=== PATIENT | female | born 1955 | race Caucasian/White ===

== ENCOUNTER 2023-07-17 15:03 | Inpatient (IN) | payer OTHER ==
[~2023-07-17] VITALS: Ht 167.6 cm; Wt 92.5 kg
[~2023-07-17 15:03] MED LIST: AMLO-258 PO
[2023-07-17] MEDS ORDERED: 0.9% SODIUM CHLORIDE 10 ML SYRINGE IVP PRN (17:00)
[2023-07-17 17:41] LABS: BASOPHILS % (AUTO) 0.6 % (0.0-2.0); EOSINOPHILS % (AUTO) 0 % (1.0-6.0); HEMATOCRIT 47.4 % (36-46); HEMOGLOBIN 16.1 g/dL (12.0-16.0); LYMPHOCYTES # (AUTO) 1.4 K/uL (1.0-4.8); LYMPHOCYTES % (AUTO) 9.9 % (22.0-44.0); MEAN CORPUSCULAR HEMOGLOBIN 33.2 pg (26.0-34.0); MEAN CORPUSCULAR HGB CONC 33.9 G/dL (31.0-37.0); MEAN CORPUSCULAR VOLUME 98 fL (80-100); MONOCYTES # (AUTO) 0.9 K/uL (0.1-1.0); MONOCYTES % (AUTO) 6.9 % (2.0-9.0); NEUTROPHILS # (AUTO) 11.2 K/uL (1.8-7.7); NEUTROPHILS % (AUTO) 82.6 % (40.0-70.0); PLATELET COUNT (AUTO) 430 K/uL (150-450); RED BLOOD CELL COUNT(AUTO) 4.83 MIL/uL (4.00-5.20); RED CELL DISTRIBUTION WIDTH 13.7 % (11.5-14.5); WHITE BLOOD COUNT (AUTO) 13.6 K/uL (4.5-11.0)
[2023-07-17 17:48] LABS: COVID AG,FIA SOURCE NASAL SWAB
[2023-07-17 17:50] LABS: ANION GAP 16 mmol/L (8-16); CALCIUM, TOTAL 9.4 mg/dL (8.8-10.5); CARBON DIOXIDE 23 mmol/L (22-29); CHLORIDE 96 mmol/L (98-107); CREATININE 0.65 mg/dL (0.60-1.30); GLOMERULAR FILTR. RATE CALC > 60 mL/min (>60); GLUCOSE,RANDOM 102 mg/dL (70-110); POTASSIUM 3.9 mmol/L (3.5-5.1); SODIUM SERUM 135 mmol/L (136-145); UREA NITROGEN, BLOOD 13 mg/dL (7-18)
[2023-07-17 17:52] LABS: APPEARANCE,URINE HAZY (CLEAR); COLOR,URINE YELLOW (YELLOW); GLUCOSE, URINE (UA) NEGATIVE (NEGATIVE); KETONES,URINE 80-100 mg/dL (NEGATIVE); LEUKOCYTE ESTERASE ,URINE LARGE (NEGATIVE); NITRATE,URINE NEGATIVE (NEGATIVE); OCCULT BLOOD,URINE SMALL (NEGATIVE); PH,URINE 5.5 (5.0-8.0); PROTEIN,URINE 30-70 mg/dL (NEGATIVE); SPECIFIC GRAVITIY, URINE 1.029 (1.003-1.030)
[2023-07-17 17:55] LABS: BILIRUBIN,URINE SMALL (NEGATIVE)
[2023-07-17 17:55] LABS: INR 1.1 (0.9-1.1); PROTHROMBIN TIME 11.7 SEC (9.4-11.6)
[2023-07-17 17:56] LABS: ALANINE AMINOTRANSFERASE 62 U/L (12-78); ALBUMIN 3.2 g/dL (3.4-5.0); ALKALINE PHOSPHATASE 104 U/L (46-116); ASPARTATE AMINOTRANSFERASE 32 U/L (15-37); BILIRUBIN,TOTAL 1.2 mg/dL (0.1-1.0); TOTAL PROTEIN, SERUM 8.2 g/dL (6.4-8.2)
[2023-07-17 17:58] LABS: LACTIC ACID 1.5 mmol/L (0.4-2.0); TROPONIN I-HIGH SENSITIVITY 5 ng/L (<51)
[2023-07-17 18:00] LABS: B-TYPE NATRIURETIC PEPTIDE 21 pg/mL (0-100)
[2023-07-17 18:09] LABS: INFLUENZA TYPE A NEGATIVE FOR TYPE A (NEGATIVE); INFLUENZA TYPE B NEGATIVE FOR TYPE B (NEGATIVE); SARS-COV2 (COVID) ANTIGEN,FIA Negative (Negative)
[2023-07-17] MEDS: SODIUM CHLORIDE 0.9% 3,100 ML IV ONE (18:16)
[2023-07-17] MEDS: CefTRIAXone 1 GM/DEXTROSE 50 ML IV ONE (18:17)
[2023-07-17 18:44] LABS: BACTERIA,URINE Few /HPF (None Seen); RBC,URINE 0-2 /HPF (0-2); WBC,URINE 26-50 /HPF (0-5); YEAST,URINE Moderate /HPF (None Seen)
[2023-07-17] MEDS: MORPHINE SULFATE 2 MG/ML SYRINGE IVP ONE (18:46)
[2023-07-17] MEDS: SODIUM CHLORIDE 0.9% 1,000 ML IV ONE (19:00)
[2023-07-17 22:29] VITALS: BP 127/78; PULSE 113; RESP 17; TEMP 98.1
[2023-07-18] MEDS: HEPARIN SODIUM,PORCINE 5,000 UNITS/ML VIAL SQ SCH (00:13)
[2023-07-18] MEDS ORDERED: HYDROCODONE/ACETAMINOPHEN 5-325 MG TABLET PO PRN (04:45)
[2023-07-18 06:02] VITALS: BP 101/61; PULSE 100; RESP 18; TEMP 98.4
[2023-07-18 07:55] VITALS: BP 119/59; PULSE 102; RESP 18; TEMP 98.1
[2023-07-18] MEDS: PANTOPRAZOLE SODIUM 40 MG/VIAL IVP SCH (08:45)
[2023-07-18 11:19] VITALS: BP 111/60; PULSE 101; RESP 18; TEMP 97.6
[2023-07-18 12:45] LABS: GLUCOMETER DEV NAME(LOC) 5S.1B; GLUCOSE,POINT OF CARE 83 MG/DL (70-110)
[2023-07-18] MEDS ORDERED: SODIUM CHLORIDE 0.9% 250 ML IV ONE (15:14)
[2023-07-18] MEDS: CefTRIAXone 1 GM/DEXTROSE 50 ML IV SCH (17:15)
[2023-07-18 18:46] VITALS: PULSE 111; RESP 18
[2023-07-18 19:46] VITALS: BP 205/111; PULSE 126; RESP 19; TEMP 98.6
[2023-07-18] MEDS: HydrALAZINE HCL 20 MG/ML VIAL IVP PRN (19:49)
[2023-07-18 20:49] VITALS: BP 146/77
[2023-07-19] VITALS (7 sets, daily range): BP systolic 147–164; BP diastolic 83–93; PULSE 105–127; RESP 16–18; TEMP 97.3–98.7
[2023-07-20 00:01] VITALS: BP 146/81; PULSE 112; RESP 18; TEMP 98.2
[2023-07-20 06:48] VITALS: BP 122/81; PULSE 112; RESP 20; TEMP 98.3
[2023-07-20 07:01] LABS: BASOPHILS % (AUTO) 0.6 % (0.0-2.0); EOSINOPHILS % (AUTO) 0 % (1.0-6.0); HEMATOCRIT 40.5 % (36-46); HEMOGLOBIN 14.2 g/dL (12.0-16.0); LYMPHOCYTES # (AUTO) 1.3 K/uL (1.0-4.8); MEAN CORPUSCULAR HEMOGLOBIN 33.9 pg (26.0-34.0); MEAN CORPUSCULAR VOLUME 97 fL (80-100); MONOCYTES # (AUTO) 0.9 K/uL (0.1-1.0); MONOCYTES % (AUTO) 9.2 % (2.0-9.0); NEUTROPHILS # (AUTO) 7.9 K/uL (1.8-7.7); NEUTROPHILS % (AUTO) 77.2 % (40.0-70.0); PLATELET COUNT (AUTO) 405 K/uL (150-450); RED BLOOD CELL COUNT(AUTO) 4.19 MIL/uL (4.00-5.20); RED CELL DISTRIBUTION WIDTH 13.6 % (11.5-14.5); WHITE BLOOD COUNT (AUTO) 10.2 K/uL (4.5-11.0)
[2023-07-20 08:58] VITALS: BP 152/87; PULSE 117; RESP 20
[2023-07-20 11:11] LABS: GLUCOMETER DEV NAME(LOC) 5S.1B; GLUCOSE,POINT OF CARE 105 MG/DL (70-110)
[2023-07-20] MEDS: DEXTROSE 5%-0.45% SODIUM CHL 1,000 ML IV SCH (11:17)
[2023-07-20 11:46] VITALS: BP 154/93; PULSE 115; RESP 20; TEMP 98.1
[2023-07-20 16:47] VITALS: BP 171/99; PULSE 118; RESP 18; TEMP 98.2
[2023-07-20 20:05] VITALS: BP 156/105; PULSE 129; RESP 19; TEMP 99.4
[2023-07-20 20:43] LABS: BASOPHILS % (AUTO) 0.5 % (0.0-2.0); EOSINOPHILS % (AUTO) 0 % (1.0-6.0); HEMATOCRIT 34.2 % (36-46); LYMPHOCYTES # (AUTO) 0.9 K/uL (1.0-4.8); LYMPHOCYTES % (AUTO) 9.9 % (22.0-44.0); MEAN CORPUSCULAR HEMOGLOBIN 33.8 pg (26.0-34.0); MEAN CORPUSCULAR HGB CONC 32.2 G/dL (31.0-37.0); MEAN CORPUSCULAR VOLUME 105 fL (80-100); MONOCYTES % (AUTO) 10.9 % (2.0-9.0); NEUTROPHILS # (AUTO) 7.3 K/uL (1.8-7.7); NEUTROPHILS % (AUTO) 78.7 % (40.0-70.0); PLATELET COUNT (AUTO) 303 K/uL (150-450); RED BLOOD CELL COUNT(AUTO) 3.26 MIL/uL (4.00-5.20); RED CELL DISTRIBUTION WIDTH 14.8 % (11.5-14.5); WHITE BLOOD COUNT (AUTO) 9.2 K/uL (4.5-11.0)
[2023-07-20 23:07] LABS: RBC MORPHOLOGY COMMENT ABNORMAL RBC MORPH
[2023-07-21 00:22] VITALS: BP 167/93; PULSE 123; RESP 20; TEMP 97.8
[2023-07-21 02:56] LABS: GLUCOMETER DEV NAME(LOC) 5N.1D; GLUCOSE,POINT OF CARE 138 MG/DL (70-110)
[2023-07-21 03:39] VITALS: BP 133/79; PULSE 124; RESP 20; TEMP 98.1
[2023-07-21 08:33] VITALS: BP 144/73; PULSE 112; RESP 20; TEMP 98.9
[2023-07-21] MEDS: HYDROCODONE/ACETAMINOPHEN 5-325 MG TABLET PO PRN (17:29)
[2023-07-21 20:26] VITALS: BP 174/91; PULSE 102; RESP 20; TEMP 98
[2023-07-21] MEDS: ACETAMINOPHEN 325 MG TABLET PO PRN (20:44)
[2023-07-22 12:32] VITALS: BP 164/98; PULSE 112; RESP 18; TEMP 98
[2023-07-22 19:45] VITALS: BP 133/82; PULSE 105; RESP 18; TEMP 98.3
[2023-07-22] MEDS: OLANZapine 10 MG TABLET PO SCH (20:00)
[2023-07-23 06:06] VITALS: BP 147/77; PULSE 127; RESP 18; TEMP 98.3
[2023-07-23 07:40] VITALS: BP 145/75; PULSE 115; RESP 18; TEMP 98
[2023-07-23 19:48] VITALS: BP 158/72; PULSE 135; RESP 20; TEMP 100.4
[2023-07-23 21:50] VITALS: BP 116/57; PULSE 126; RESP 20; TEMP 98.8
[2023-07-24 01:02] VITALS: BP 123/82; PULSE 103; RESP 17
[2023-07-24 04:10] VITALS: BP 124/69; PULSE 121; RESP 18; TEMP 98.4
[2023-07-24 07:54] VITALS: BP 135/109; PULSE 121; RESP 18; TEMP 99.5
[2023-07-24 11:27] LABS: BASOPHILS % (AUTO) 0.8 % (0.0-2.0); EOSINOPHILS % (AUTO) 0 % (1.0-6.0); HEMATOCRIT 41.3 % (36-46); HEMOGLOBIN 14.3 g/dL (12.0-16.0); LYMPHOCYTES # (AUTO) 0.5 K/uL (1.0-4.8); LYMPHOCYTES % (AUTO) 8.1 % (22.0-44.0); MEAN CORPUSCULAR HEMOGLOBIN 33.3 pg (26.0-34.0); MEAN CORPUSCULAR HGB CONC 34.8 G/dL (31.0-37.0); MEAN CORPUSCULAR VOLUME 96 fL (80-100); MONOCYTES # (AUTO) 0.5 K/uL (0.1-1.0); MONOCYTES % (AUTO) 8.1 % (2.0-9.0); NEUTROPHILS # (AUTO) 4.6 K/uL (1.8-7.7); PLATELET COUNT (AUTO) 334 K/uL (150-450); RED BLOOD CELL COUNT(AUTO) 4.31 MIL/uL (4.00-5.20); RED CELL DISTRIBUTION WIDTH 13.8 % (11.5-14.5); WHITE BLOOD COUNT (AUTO) 5.6 K/uL (4.5-11.0)
[2023-07-24 12:31] LABS: COVID AG,FIA SOURCE NASAL SWAB
[2023-07-24] MEDS: LORazepam 2 MG/ML VIAL IVP SCH (12:40)
[2023-07-24 13:01] LABS: SARS-COV2 (COVID) ANTIGEN,FIA Negative (Negative)
[2023-07-24 13:51] LABS: INFLUENZA TYPE A NEGATIVE FOR TYPE A (NEGATIVE); INFLUENZA TYPE B NEGATIVE FOR TYPE B (NEGATIVE)
[2023-07-24] MEDS: BISACODYL 10 MG RECTAL RECTAL SUPPOSITORY PR PRN (18:35)
[2023-07-24 19:12] VITALS: BP 152/75; PULSE 121; RESP 20; TEMP 101.6
[2023-07-24 23:29] VITALS: BP 149/84; PULSE 109; RESP 19; TEMP 98.7
[2023-07-25 03:28] VITALS: BP 142/72; PULSE 109; RESP 19; TEMP 98.2
[2023-07-25 07:27] VITALS: BP 148/80; PULSE 108; RESP 19; TEMP 98.8
[2023-07-25] MEDS: *CLINICAL-MEROPENEM DOSING CLINICAL ONE (13:34)
[2023-07-25] MEDS: MEROPENEM 1 GM in SODIUM CHLORIDE 0.9% 100 ML IV SCH (15:05)
[2023-07-25 16:30] VITALS: BP 147/87; PULSE 109; RESP 19; TEMP 98.8
[2023-07-25 19:18] VITALS: BP 164/94; PULSE 115; RESP 18; TEMP 100.6
[2023-07-25 21:10] VITALS: BP 98/56; PULSE 109; RESP 18; TEMP 98.8
[2023-07-26 04:44] VITALS: BP 135/70; PULSE 103; RESP 18; TEMP 98.8
[2023-07-26 08:30] VITALS: BP 140/89; PULSE 113; RESP 19; TEMP 98.9
[2023-07-26 16:05] VITALS: BP 151/73; PULSE 116; RESP 18; TEMP 98.8
[2023-07-26 20:46] VITALS: BP 121/81; PULSE 124; RESP 20; TEMP 98.6
[2023-07-27 04:10] VITALS: BP 107/60; PULSE 110; RESP 18; TEMP 98.9
[2023-07-27 08:04] VITALS: BP 114/64; PULSE 112; RESP 18; TEMP 98.9
[2023-07-27 15:13] VITALS: BP 136/72; PULSE 103; RESP 20; TEMP 97.3
[2023-07-27 20:31] VITALS: BP 152/77; PULSE 107; RESP 19; TEMP 97.7
[2023-07-28 05:49] VITALS: BP 118/66; PULSE 93; RESP 19; TEMP 98.1
[2023-07-28 08:45] VITALS: BP 144/70; PULSE 99; RESP 18; TEMP 99.4
[2023-07-28 16:15] LABS: GLUCOMETER DEV NAME(LOC) 4E.2; GLUCOSE,POINT OF CARE 114 MG/DL (70-110)
[2023-07-28 16:24] VITALS: BP 159/88; PULSE 98; RESP 18; TEMP 98.8
[2023-07-28 20:13] VITALS: BP 128/69; PULSE 101; RESP 18; TEMP 98.4
[2023-07-29 04:04] VITALS: BP 138/79; PULSE 100; RESP 18; TEMP 97.9
[2023-07-29 08:50] VITALS: BP 112/66; PULSE 97; RESP 18; TEMP 97.8
[2023-07-29 16:47] VITALS: BP 170/93; PULSE 104; RESP 18; TEMP 98.3
[2023-07-29 23:06] VITALS: BP 141/78; PULSE 102; RESP 19; TEMP 97.9
[2023-07-30 05:29] VITALS: BP 121/58; PULSE 94; RESP 18; TEMP 98.5
[2023-07-30 10:00] VITALS: BP 138/76; PULSE 101; RESP 18; TEMP 98.4
[2023-07-30 19:20] VITALS: BP 153/86; PULSE 96; RESP 20; TEMP 98.5
[2023-07-31 04:38] VITALS: BP 140/74; PULSE 98; RESP 20; TEMP 97.9
[2023-07-31 07:59] VITALS: BP 144/75; PULSE 94; RESP 19; TEMP 98.4
[2023-07-31] MEDS: ETHYL ALCOHOL 62% ANTISEPTIC NASAL SANITIZER 0.6 ML AMPUL NASAL SCH (09:15)
[2023-07-31 20:59] VITALS: BP 147/77; PULSE 101; RESP 20; TEMP 97.5
[2023-08-01 05:12] VITALS: BP 156/81; PULSE 103; RESP 20; TEMP 98.5
[2023-08-01 07:27] VITALS: BP 121/74; PULSE 99; RESP 18; TEMP 98.3
[2023-08-01 19:31] VITALS: BP 156/92; PULSE 104; RESP 19; TEMP 97.6
[2023-08-02 04:20] VITALS: BP 147/83; PULSE 109; RESP 18; TEMP 97.8
[2023-08-02 08:09] VITALS: BP 136/70; PULSE 106; RESP 20; TEMP 98.8
[2023-08-02 11:06] LABS: BASOPHILS % (AUTO) 0.8 % (0.0-2.0); EOSINOPHILS % (AUTO) 0 % (1.0-6.0); HEMOGLOBIN 13.6 g/dL (12.0-16.0); LYMPHOCYTES # (AUTO) 1.6 K/uL (1.0-4.8); LYMPHOCYTES % (AUTO) 28.2 % (22.0-44.0); MEAN CORPUSCULAR HEMOGLOBIN 32.8 pg (26.0-34.0); MEAN CORPUSCULAR HGB CONC 34.9 G/dL (31.0-37.0); MEAN CORPUSCULAR VOLUME 94 fL (80-100); MONOCYTES # (AUTO) 0.5 K/uL (0.1-1.0); MONOCYTES % (AUTO) 8.8 % (2.0-9.0); NEUTROPHILS # (AUTO) 3.6 K/uL (1.8-7.7); NEUTROPHILS % (AUTO) 62.2 % (40.0-70.0); PLATELET COUNT (AUTO) 334 K/uL (150-450); RED BLOOD CELL COUNT(AUTO) 4.16 MIL/uL (4.00-5.20); RED CELL DISTRIBUTION WIDTH 13.4 % (11.5-14.5); WHITE BLOOD COUNT (AUTO) 5.8 K/uL (4.5-11.0)
[2023-08-02 11:14] LABS: ANION GAP 9 mmol/L (8-16); CALCIUM, TOTAL 7.9 mg/dL (8.8-10.5); CARBON DIOXIDE 25 mmol/L (22-29); CHLORIDE 101 mmol/L (98-107); CREATININE 0.46 mg/dL (0.60-1.30); GLOMERULAR FILTR. RATE CALC > 60 mL/min (>60); GLUCOSE,RANDOM 106 mg/dL (70-110); SODIUM SERUM 135 mmol/L (136-145); UREA NITROGEN, BLOOD 4 mg/dL (7-18)
[2023-08-02 11:16] LABS: POTASSIUM 2.9 mmol/L (3.5-5.1)
[2023-08-02] MEDS: POTASSIUM CHL 10 MEQ/WATER 50 ML IV PRN (11:46)
[2023-08-02 15:41] VITALS: BP 151/73; PULSE 111; RESP 18; TEMP 98.4
[2023-08-02 19:22] VITALS: BP 150/93; PULSE 115; RESP 18; TEMP 99.1
[2023-08-03] VITALS (7 sets, daily range): BP systolic 108–177; BP diastolic 67–96; PULSE 88–127; RESP 16–19; TEMP 94.9–98.6
[2023-08-03] MEDS: *CLINICAL-PERIPHERAL PARENTERAL NUTRITION DOSING CLINICAL ONE (09:55)
[2023-08-03 10:41] LABS: ANION GAP 6 mmol/L (8-16); CALCIUM, TOTAL 8.5 mg/dL (8.8-10.5); CARBON DIOXIDE 27 mmol/L (22-29); CHLORIDE 101 mmol/L (98-107); CREATININE 0.52 mg/dL (0.60-1.30); GLOMERULAR FILTR. RATE CALC > 60 mL/min (>60); GLUCOSE,RANDOM 104 mg/dL (70-110); PHOSPHORUS 2.4 mg/dL (2.5-4.9); POTASSIUM 3.5 mmol/L (3.5-5.1); SODIUM SERUM 134 mmol/L (136-145); UREA NITROGEN, BLOOD 5 mg/dL (7-18)
[2023-08-03] MEDS ORDERED: HEPA500018 SQ (11:52)
[2023-08-03] MEDS ORDERED: PANT40VI14 IVP (11:52)
[2023-08-03] MEDS ORDERED: OLAN10TA74 PO (11:52)
[2023-08-03] MEDS ORDERED: ACET-2247 PO (11:54)
[2023-08-03] MEDS: [UNRECOGNIZED DRUG - OTHER] IV SCH (12:51)
[2023-08-03] MEDS: PPN IV SCH (12:51)
[2023-08-03] MEDS: SODIUM ACETATE IV SCH (12:51)
[2023-08-03] MEDS: SODIUM CHLORIDE IV SCH (12:51)
[2023-08-03] MEDS: NITROGLYCERIN 0.4 MG SUBLINGUAL TABLET #25 SL ONE (20:34)
[2023-08-03 21:31] LABS: TROPONIN I-HIGH SENSITIVITY 4 ng/L (<51)
[2023-08-03] MEDS: METOPROLOL TARTRATE 5 MG/5 ML VIAL IVP ONE (22:00)
[2023-08-03] MEDS: METOPROLOL TARTRATE 25 MG TABLET PO SCH (22:38)
[2023-08-04 00:47] LABS: TROPONIN I-HIGH SENSITIVITY 5 ng/L (<51)
[2023-08-04 06:05] VITALS: BP 137/76; PULSE 84; RESP 18; TEMP 98.2
[2023-08-04 07:55] VITALS: BP 113/58; PULSE 97; RESP 18; TEMP 97.6
[2023-08-04 08:14] LABS: ANION GAP 10 mmol/L (8-16); CALCIUM, TOTAL 8.9 mg/dL (8.8-10.5); CARBON DIOXIDE 25 mmol/L (22-29); CHLORIDE 102 mmol/L (98-107); CREATININE 0.55 mg/dL (0.60-1.30); GLOMERULAR FILTR. RATE CALC > 60 mL/min (>60); GLUCOSE,RANDOM 99 mg/dL (70-110); PHOSPHORUS 3.8 mg/dL (2.5-4.9); SODIUM SERUM 137 mmol/L (136-145); UREA NITROGEN, BLOOD 11 mg/dL (7-18)
[2023-08-04 16:22] VITALS: BP 157/73; PULSE 102; RESP 18; TEMP 98
[2023-08-04 19:42] VITALS: BP 151/82; PULSE 102; RESP 18; TEMP 98.2
[2023-08-04] MEDS: [UNRECOGNIZED DRUG - OTHER] IV SCH (22:16)
[2023-08-04] MEDS: SODIUM ACETATE IV SCH (22:16)
[2023-08-04] MEDS: PPN IV SCH (22:16)
[2023-08-04] MEDS: SODIUM CHLORIDE IV SCH (22:16)
[2023-08-05 04:53] VITALS: BP 155/87; PULSE 105; RESP 18; TEMP 98.3
[2023-08-05 07:48] LABS: ANION GAP 8 mmol/L (8-16); CALCIUM, TOTAL 8.6 mg/dL (8.8-10.5); CARBON DIOXIDE 26 mmol/L (22-29); CHLORIDE 102 mmol/L (98-107); CREATININE 0.55 mg/dL (0.60-1.30); GLOMERULAR FILTR. RATE CALC > 60 mL/min (>60); GLUCOSE,RANDOM 88 mg/dL (70-110); POTASSIUM 4.1 mmol/L (3.5-5.1); SODIUM SERUM 136 mmol/L (136-145); UREA NITROGEN, BLOOD 15 mg/dL (7-18)
[2023-08-05 08:18] VITALS: BP 111/69; PULSE 93; RESP 18; TEMP 98.3
[2023-08-05 15:26] VITALS: BP 134/95; PULSE 106; RESP 18; TEMP 98.3
[2023-08-05 19:22] VITALS: BP 138/78; PULSE 104; RESP 20; TEMP 97.9
[2023-08-06 04:52] VITALS: BP 129/74; PULSE 99; RESP 20; TEMP 98.6
[2023-08-06 08:12] LABS: ANION GAP 10 mmol/L (8-16); CALCIUM, TOTAL 8.7 mg/dL (8.8-10.5); CARBON DIOXIDE 24 mmol/L (22-29); CHLORIDE 101 mmol/L (98-107); CREATININE 0.53 mg/dL (0.60-1.30); GLOMERULAR FILTR. RATE CALC > 60 mL/min (>60); GLUCOSE,RANDOM 89 mg/dL (70-110); PHOSPHORUS 3.7 mg/dL (2.5-4.9); POTASSIUM 3.5 mmol/L (3.5-5.1); SODIUM SERUM 135 mmol/L (136-145); UREA NITROGEN, BLOOD 15 mg/dL (7-18)
[2023-08-06 08:14] VITALS: BP 121/68; PULSE 82; RESP 18; TEMP 98.2
[2023-08-06 16:43] VITALS: BP 146/83; PULSE 105; RESP 18; TEMP 98.2
[2023-08-06 19:37] VITALS: BP 143/62; PULSE 112; RESP 18; TEMP 98.6
[2023-08-06] MEDS: OLANZapine 7.5 MG TABLET PO SCH (20:23)
[2023-08-07] VITALS (11 sets, daily range): BP systolic 70–140; BP diastolic 41–88; PULSE 59–149; RESP 17–20; TEMP 98.5–103.2
[2023-08-07 07:31] LABS: ANION GAP 10 mmol/L (8-16); CALCIUM, TOTAL 8.6 mg/dL (8.8-10.5); CARBON DIOXIDE 23 mmol/L (22-29); CHLORIDE 101 mmol/L (98-107); CREATININE 0.48 mg/dL (0.60-1.30); GLOMERULAR FILTR. RATE CALC > 60 mL/min (>60); GLUCOSE,RANDOM 104 mg/dL (70-110); PHOSPHORUS 4.1 mg/dL (2.5-4.9); POTASSIUM 3.8 mmol/L (3.5-5.1); SODIUM SERUM 134 mmol/L (136-145); UREA NITROGEN, BLOOD 13 mg/dL (7-18)
[2023-08-07] MEDS ORDERED: SODIUM CHLORIDE IV SCH (08:00)
[2023-08-07] MEDS ORDERED: [UNRECOGNIZED DRUG - OTHER] IV SCH (08:00)
[2023-08-07] MEDS ORDERED: PPN IV SCH (08:00)
[2023-08-07] MEDS ORDERED: SODIUM ACETATE IV SCH (08:00)
[2023-08-07] MEDS: *CLINICAL-MEROPENEM DOSING CLINICAL ONE (20:46)
[2023-08-07] MEDS ORDERED: SODIUM CHLORIDE 0.9% 500 ML IV ONE (21:17)
[2023-08-07] MEDS: SODIUM CHLORIDE 0.9% 250 ML IV ONE (21:19)
[2023-08-07] MEDS: MEROPENEM 1 GM in SODIUM CHLORIDE 0.9% 100 ML IV SCH (21:57)
[2023-08-07] MEDS: SODIUM CHLORIDE 0.9% 1,000 ML IV ONE (23:12)
[2023-08-07 23:35] LABS: LACTIC ACID 1.6 mmol/L (0.4-2.0)
[2023-08-08] VITALS (9 sets, daily range): BP systolic 87–140; BP diastolic 46–81; PULSE 98–133; RESP 17–20; TEMP 96.9–102.4
[2023-08-08] MEDS: [UNRECOGNIZED DRUG - OTHER] IV SCH (00:24)
[2023-08-08] MEDS: PPN IV SCH (00:24)
[2023-08-08] MEDS: SODIUM ACETATE IV SCH (00:24)
[2023-08-08] MEDS: SODIUM CHLORIDE IV SCH (00:24)
[2023-08-08 05:16] LABS: GLUCOMETER DEV NAME(LOC) 6N.2B; GLUCOSE,POINT OF CARE 127 MG/DL (70-110)
[2023-08-08 06:55] LABS: BASOPHILS % (AUTO) 0.3 % (0.0-2.0); EOSINOPHILS % (AUTO) 0 % (1.0-6.0); HEMATOCRIT 34.8 % (36-46); LYMPHOCYTES # (AUTO) 0.7 K/uL (1.0-4.8); LYMPHOCYTES % (AUTO) 6.4 % (22.0-44.0); MEAN CORPUSCULAR HEMOGLOBIN 32.4 pg (26.0-34.0); MEAN CORPUSCULAR HGB CONC 34.5 G/dL (31.0-37.0); MEAN CORPUSCULAR VOLUME 94 fL (80-100); MONOCYTES % (AUTO) 8.3 % (2.0-9.0); NEUTROPHILS # (AUTO) 9.8 K/uL (1.8-7.7); PLATELET COUNT (AUTO) 267 K/uL (150-450); RED BLOOD CELL COUNT(AUTO) 3.71 MIL/uL (4.00-5.20); RED CELL DISTRIBUTION WIDTH 13.6 % (11.5-14.5); WHITE BLOOD COUNT (AUTO) 11.5 K/uL (4.5-11.0)
[2023-08-08 07:08] LABS: ALANINE AMINOTRANSFERASE 50 U/L (12-78); ALBUMIN 2.2 g/dL (3.4-5.0); ALKALINE PHOSPHATASE 149 U/L (46-116); ANION GAP 12 mmol/L (8-16); ASPARTATE AMINOTRANSFERASE 43 U/L (15-37); BILIRUBIN,TOTAL 0.8 mg/dL (0.1-1.0); CALCIUM, TOTAL 8.1 mg/dL (8.8-10.5); CARBON DIOXIDE 20 mmol/L (22-29); CHLORIDE 101 mmol/L (98-107); GLOMERULAR FILTR. RATE CALC > 60 mL/min (>60); GLUCOSE,RANDOM 121 mg/dL (70-110); POTASSIUM 3.5 mmol/L (3.5-5.1); SODIUM SERUM 133 mmol/L (136-145); TOTAL PROTEIN, SERUM 5.9 g/dL (6.4-8.2); UREA NITROGEN, BLOOD 20 mg/dL (7-18)
[2023-08-08] MEDS ORDERED: SODIUM CHLORIDE 0.9% 500 ML IV ONE (08:27)
[2023-08-08] MEDS: ACETAMINOPHEN 1000 MG/ISO-OSM 100 ML IV ONE (08:29)
[2023-08-08] MEDS: SODIUM CHLORIDE 0.9% 1,000 ML IV ONE ×2 (11:00→12:49)
[2023-08-08 16:05] LABS: APPEARANCE,URINE CLEAR (CLEAR); BILIRUBIN,URINE NEGATIVE (NEGATIVE); COLOR,URINE YELLOW (YELLOW); GLUCOSE, URINE (UA) NEGATIVE (NEGATIVE); KETONES,URINE TRACE mg/dL (NEGATIVE); LEUKOCYTE ESTERASE ,URINE SMALL (NEGATIVE); NITRATE,URINE NEGATIVE (NEGATIVE); OCCULT BLOOD,URINE TRACE (NEGATIVE); PROTEIN,URINE TRACE mg/dL (NEGATIVE); SPECIFIC GRAVITIY, URINE 1.023 (1.003-1.030); UROBILINOGEN,URINE <=1.0 mg/dL (<=1.0)
[2023-08-08 16:23] LABS: BACTERIA,URINE Few /HPF (None Seen); SQUAMOUS EPITHELIAL CELL,UR Few /LPF (None Seen); YEAST,URINE Many /HPF (None Seen)
[2023-08-08] MEDS: ACETAMINOPHEN 500 MG/ISO-OSM 50 ML IV ONE (20:00)
[2023-08-08] MEDS ORDERED: SODIUM CHLORIDE IV SCH (22:00)
[2023-08-08] MEDS ORDERED: [UNRECOGNIZED DRUG - OTHER] IV SCH (22:00)
[2023-08-08] MEDS ORDERED: PPN IV SCH (22:00)
[2023-08-08] MEDS ORDERED: SODIUM ACETATE IV SCH (22:00)
[2023-08-08] MEDS: *CLINICAL-TOBRAMYCIN DOSING CLINICAL ONE (22:21)
[2023-08-09] VITALS: BP 121/62; PULSE 109; RESP 19; TEMP 99
[2023-08-09] MEDS: WATER IV ONE (00:27)
[2023-08-09] MEDS: TOBRAMYCIN SULFATE IV ONE (00:27)
[2023-08-09] MEDS: DEXTROSE 5% IV ONE (00:27)
[2023-08-09] MEDS: MICAFUNGIN SODIUM 100 MG in SODIUM CHLORIDE 0.9% 100 ML IV ONE (01:07)
[2023-08-09 04:03] VITALS: BP 127/97; PULSE 125; RESP 18; TEMP 96.8
[2023-08-09] MEDS: DEXTROSE 5%-0.9% SODIUM CHL 1,000 ML IV ONE (04:33)
[2023-08-09 05:31] LABS: GLUCOMETER DEV NAME(LOC) 5N.2C; GLUCOSE,POINT OF CARE 85 MG/DL (70-110)
[2023-08-09 05:31] LABS: GLUCOMETER DEV NAME(LOC) 5N.2C; GLUCOSE,POINT OF CARE 99 MG/DL (70-110)
[2023-08-09 05:31] LABS: GLUCOMETER DEV NAME(LOC) 5N.2C; GLUCOSE,POINT OF CARE 73 MG/DL (70-110)
[2023-08-09 06:31] LABS: ANION GAP 9 mmol/L (8-16); CALCIUM, TOTAL 8.2 mg/dL (8.8-10.5); CARBON DIOXIDE 23 mmol/L (22-29); CHLORIDE 102 mmol/L (98-107); CREATININE 0.65 mg/dL (0.60-1.30); GLOMERULAR FILTR. RATE CALC > 60 mL/min (>60); GLUCOSE,RANDOM 95 mg/dL (70-110); PHOSPHORUS 2.6 mg/dL (2.5-4.9); POTASSIUM 3.8 mmol/L (3.5-5.1); SODIUM SERUM 134 mmol/L (136-145); UREA NITROGEN, BLOOD 14 mg/dL (7-18)
[2023-08-09 08:25] VITALS: BP 143/83; PULSE 121; RESP 20; TEMP 97.8
[2023-08-09 12:15] VITALS: BP 130/61; PULSE 118; RESP 19; TEMP 98.2
[2023-08-09 14:56] VITALS: BP 137/61; PULSE 115; RESP 20; TEMP 98.8
[2023-08-09 20:18] VITALS: BP 138/77; PULSE 111; RESP 20; TEMP 100.4
[2023-08-09] MEDS ORDERED: SODIUM CHLORIDE 0.9% 1,000 ML ONE (22:40)
[2023-08-10] MEDS: CASPOFUNGIN ACETATE 70 MG in SODIUM CHLORIDE 0.9% 250 ML IV ONE (00:11)
[2023-08-10 00:23] VITALS: BP 159/84; PULSE 105; RESP 18; TEMP 100.1
[2023-08-10] MEDS: ACETAMINOPHEN 500 MG/ISO-OSM 50 ML IV ONE (02:38)
[2023-08-10 05:06] VITALS: BP 122/51; PULSE 96; RESP 18; TEMP 98.2
[2023-08-10 07:16] LABS: ANION GAP 10 mmol/L (8-16); CALCIUM, TOTAL 7.8 mg/dL (8.8-10.5); CARBON DIOXIDE 21 mmol/L (22-29); CHLORIDE 100 mmol/L (98-107); CREATININE 0.52 mg/dL (0.60-1.30); GLOMERULAR FILTR. RATE CALC > 60 mL/min (>60); GLUCOSE,RANDOM 88 mg/dL (70-110); POTASSIUM 3.1 mmol/L (3.5-5.1); SODIUM SERUM 131 mmol/L (136-145); UREA NITROGEN, BLOOD 10 mg/dL (7-18)
[2023-08-10 07:51] VITALS: BP 133/65; PULSE 94; RESP 18; TEMP 97.5
[2023-08-10 09:01] LABS: GLUCOMETER DEV NAME(LOC) 5N.1D; GLUCOSE,POINT OF CARE 94 MG/DL (70-110)
[2023-08-10 09:01] LABS: GLUCOMETER DEV NAME(LOC) 5N.1D; GLUCOSE,POINT OF CARE 79 MG/DL (70-110)
[2023-08-10 09:01] LABS: GLUCOMETER DEV NAME(LOC) 5N.1D; GLUCOSE,POINT OF CARE 79 MG/DL (70-110)
[2023-08-10] MEDS: DEXTROSE 5%-0.45% SODIUM CHL 1,000 ML IV SCH (10:23)
[2023-08-10 11:40] VITALS: BP 154/91; PULSE 104; RESP 18; TEMP 97.7
[2023-08-10] MEDS: VANCOMYCIN 1GM/WATER(PEG/NADA) 200 ML IV ONE (15:32)
[2023-08-10 15:47] VITALS: BP 150/90; PULSE 99; RESP 18; TEMP 98.3
[2023-08-10 20:41] LABS: GLUCOMETER DEV NAME(LOC) 5N.1D; GLUCOSE,POINT OF CARE 88 MG/DL (70-110)
[2023-08-10 20:47] VITALS: BP 152/83; PULSE 95; RESP 20; TEMP 98.7
[2023-08-10] MEDS: VANCOMYCIN 1GM/WATER(PEG/NADA) 200 ML IV SCH (20:59)
[2023-08-11 00:11] VITALS: BP 136/61; PULSE 104; RESP 19; TEMP 98.8
[2023-08-11 01:40] VITALS: BP 126/68; PULSE 85; RESP 18; TEMP 98.5
[2023-08-11] MEDS: CASPOFUNGIN ACETATE 50 MG in SODIUM CHLORIDE 0.9% 250 ML IV SCH (01:41)
[2023-08-11 03:51] LABS: GLUCOMETER DEV NAME(LOC) 5N.1D; GLUCOSE,POINT OF CARE 89 MG/DL (70-110)
[2023-08-11 05:06] VITALS: BP 145/76; PULSE 105; RESP 20; TEMP 99.5
[2023-08-11 07:08] LABS: BASOPHILS % (AUTO) 0.1 % (0.0-2.0); EOSINOPHILS % (AUTO) 0 % (1.0-6.0); HEMATOCRIT 33.1 % (36-46); HEMOGLOBIN 11.5 g/dL (12.0-16.0); LYMPHOCYTES # (AUTO) 0.9 K/uL (1.0-4.8); LYMPHOCYTES % (AUTO) 25.2 % (22.0-44.0); MEAN CORPUSCULAR HEMOGLOBIN 32.6 pg (26.0-34.0); MEAN CORPUSCULAR HGB CONC 34.8 G/dL (31.0-37.0); MEAN CORPUSCULAR VOLUME 94 fL (80-100); MONOCYTES # (AUTO) 0.5 K/uL (0.1-1.0); MONOCYTES % (AUTO) 14.6 % (2.0-9.0); NEUTROPHILS # (AUTO) 2.2 K/uL (1.8-7.7); NEUTROPHILS % (AUTO) 60.1 % (40.0-70.0); PLATELET COUNT (AUTO) 161 K/uL (150-450); RED BLOOD CELL COUNT(AUTO) 3.53 MIL/uL (4.00-5.20); RED CELL DISTRIBUTION WIDTH 13.3 % (11.5-14.5); WHITE BLOOD COUNT (AUTO) 3.7 K/uL (4.5-11.0)
[2023-08-11 07:17] LABS: ANION GAP 8 mmol/L (8-16); CARBON DIOXIDE 23 mmol/L (22-29); CHLORIDE 99 mmol/L (98-107); CREATININE 0.55 mg/dL (0.60-1.30); GLOMERULAR FILTR. RATE CALC > 60 mL/min (>60); GLUCOSE,RANDOM 85 mg/dL (70-110); POTASSIUM 3.3 mmol/L (3.5-5.1); SODIUM SERUM 130 mmol/L (136-145); UREA NITROGEN, BLOOD 10 mg/dL (7-18)
[2023-08-11 07:56] LABS: GLUCOMETER DEV NAME(LOC) 6S.2; GLUCOSE,POINT OF CARE 89 MG/DL (70-110)
[2023-08-11] MEDS: POTASSIUM CHLORIDE 20 MEQ ER TABLET PO PRN (08:19)
[2023-08-11 20:34] VITALS: BP 138/67; PULSE 104; RESP 19; TEMP 99.2
[2023-08-11] MEDS ORDERED: SODIUM CHLORIDE 0.9% 500 ML IV ONE (22:36)
[2023-08-12 05:55] VITALS: BP 129/68; PULSE 96; RESP 18; TEMP 98.7
[2023-08-12 07:46] LABS: GLUCOMETER DEV NAME(LOC) 4E.2; GLUCOSE,POINT OF CARE 95 MG/DL (70-110)
[2023-08-12 07:55] LABS: BASOPHILS % (AUTO) 0.2 % (0.0-2.0); EOSINOPHILS % (AUTO) 0 % (1.0-6.0); HEMATOCRIT 31.8 % (36-46); HEMOGLOBIN 11.1 g/dL (12.0-16.0); LYMPHOCYTES % (AUTO) 28.2 % (22.0-44.0); MEAN CORPUSCULAR HEMOGLOBIN 32.4 pg (26.0-34.0); MEAN CORPUSCULAR HGB CONC 34.9 G/dL (31.0-37.0); MEAN CORPUSCULAR VOLUME 93 fL (80-100); MONOCYTES # (AUTO) 0.4 K/uL (0.1-1.0); MONOCYTES % (AUTO) 11.9 % (2.0-9.0); NEUTROPHILS # (AUTO) 2.2 K/uL (1.8-7.7); NEUTROPHILS % (AUTO) 59.7 % (40.0-70.0); PLATELET COUNT (AUTO) 154 K/uL (150-450); RED BLOOD CELL COUNT(AUTO) 3.43 MIL/uL (4.00-5.20); RED CELL DISTRIBUTION WIDTH 13.3 % (11.5-14.5); WHITE BLOOD COUNT (AUTO) 3.6 K/uL (4.5-11.0)
[2023-08-12 08:07] LABS: ANION GAP 11 mmol/L (8-16); CALCIUM, TOTAL 7.9 mg/dL (8.8-10.5); CARBON DIOXIDE 21 mmol/L (22-29); CHLORIDE 101 mmol/L (98-107); CREATININE 0.47 mg/dL (0.60-1.30); GLOMERULAR FILTR. RATE CALC > 60 mL/min (>60); GLUCOSE,RANDOM 99 mg/dL (70-110); SODIUM SERUM 133 mmol/L (136-145); UREA NITROGEN, BLOOD 8 mg/dL (7-18); VANCOMYCIN,RANDOM 15.1 mcg/mL (25.0-50.0)
[2023-08-12 08:14] LABS: POTASSIUM 2.7 mmol/L (3.5-5.1)
[2023-08-12] MEDS ORDERED: SODIUM CHLORIDE 0.9% 500 ML IV ONE ×2 (09:22→22:10)
[2023-08-12 15:56] VITALS: BP 128/51; PULSE 97; RESP 18; TEMP 97.4
[2023-08-12 19:28] VITALS: BP 151/83; PULSE 106; RESP 20; TEMP 98.4
[2023-08-13 05:05] VITALS: BP 144/76; PULSE 89; RESP 18; TEMP 98.1
[2023-08-13 08:03] LABS: BASOPHILS % (AUTO) 0.1 % (0.0-2.0); EOSINOPHILS % (AUTO) 0 % (1.0-6.0); HEMATOCRIT 33.1 % (36-46); HEMOGLOBIN 11.5 g/dL (12.0-16.0); LYMPHOCYTES # (AUTO) 1.3 K/uL (1.0-4.8); LYMPHOCYTES % (AUTO) 26.8 % (22.0-44.0); MEAN CORPUSCULAR HEMOGLOBIN 32.2 pg (26.0-34.0); MEAN CORPUSCULAR HGB CONC 34.8 G/dL (31.0-37.0); MEAN CORPUSCULAR VOLUME 93 fL (80-100); MONOCYTES # (AUTO) 0.5 K/uL (0.1-1.0); MONOCYTES % (AUTO) 10.4 % (2.0-9.0); NEUTROPHILS % (AUTO) 62.7 % (40.0-70.0); PLATELET COUNT (AUTO) 200 K/uL (150-450); RED BLOOD CELL COUNT(AUTO) 3.57 MIL/uL (4.00-5.20); RED CELL DISTRIBUTION WIDTH 13.2 % (11.5-14.5); WHITE BLOOD COUNT (AUTO) 4.9 K/uL (4.5-11.0)
[2023-08-13 08:32] LABS: ALANINE AMINOTRANSFERASE 27 U/L (12-78); ALBUMIN 2.1 g/dL (3.4-5.0); ALKALINE PHOSPHATASE 102 U/L (46-116); ANION GAP 9 mmol/L (8-16); ASPARTATE AMINOTRANSFERASE 29 U/L (15-37); BILIRUBIN,TOTAL 0.4 mg/dL (0.1-1.0); CARBON DIOXIDE 24 mmol/L (22-29); CHLORIDE 103 mmol/L (98-107); CREATININE 0.43 mg/dL (0.60-1.30); GLOMERULAR FILTR. RATE CALC > 60 mL/min (>60); GLUCOSE,RANDOM 109 mg/dL (70-110); POTASSIUM 3.1 mmol/L (3.5-5.1); SODIUM SERUM 136 mmol/L (136-145); TOTAL PROTEIN, SERUM 5.7 g/dL (6.4-8.2); UREA NITROGEN, BLOOD 5 mg/dL (7-18)
[2023-08-13 08:47] VITALS: BP 152/65; PULSE 93; RESP 18; TEMP 97.6
[2023-08-13 16:30] LABS: GLUCOMETER DEV NAME(LOC) 4E.2; GLUCOSE,POINT OF CARE 113 MG/DL (70-110)
[2023-08-13 17:22] VITALS: BP 153/85; PULSE 90; RESP 18; TEMP 97.4
[2023-08-13 19:30] VITALS: BP 140/67; PULSE 105; RESP 20; TEMP 98.2
[2023-08-13 23:06] LABS: GLUCOMETER DEV NAME(LOC) 4E.2; GLUCOSE,POINT OF CARE 115 MG/DL (70-110)
[2023-08-14 03:11] VITALS: BP 146/75; PULSE 94; RESP 18; TEMP 97.4
[2023-08-14 08:52] LABS: ANION GAP 6 mmol/L (8-16); CALCIUM, TOTAL 8.2 mg/dL (8.8-10.5); CARBON DIOXIDE 25 mmol/L (22-29); CHLORIDE 104 mmol/L (98-107); CREATININE 0.49 mg/dL (0.60-1.30); GLOMERULAR FILTR. RATE CALC > 60 mL/min (>60); GLUCOSE,RANDOM 120 mg/dL (70-110); POTASSIUM 3.5 mmol/L (3.5-5.1); SODIUM SERUM 135 mmol/L (136-145); UREA NITROGEN, BLOOD 7 mg/dL (7-18); VANCOMYCIN,RANDOM 12.1 mcg/mL (25.0-50.0)
[2023-08-14 09:36] VITALS: BP 144/84; PULSE 94; RESP 18; TEMP 98.4
[2023-08-14 15:57] VITALS: BP 114/77; PULSE 87; RESP 20; TEMP 98.2
[2023-08-14 19:37] VITALS: BP 145/79; PULSE 85; RESP 20; TEMP 97.5
[2023-08-14 21:25] LABS: GLUCOMETER DEV NAME(LOC) 4E.2; GLUCOSE,POINT OF CARE 104 MG/DL (70-110)
[2023-08-15 03:47] VITALS: BP 132/74; PULSE 84; RESP 20; TEMP 97.4
[2023-08-15 08:03] LABS: ALANINE AMINOTRANSFERASE 27 U/L (12-78); ALKALINE PHOSPHATASE 93 U/L (46-116); ANION GAP 9 mmol/L (8-16); ASPARTATE AMINOTRANSFERASE 30 U/L (15-37); BILIRUBIN,TOTAL 0.4 mg/dL (0.1-1.0); CALCIUM, TOTAL 8.4 mg/dL (8.8-10.5); CARBON DIOXIDE 24 mmol/L (22-29); CHLORIDE 106 mmol/L (98-107); CREATININE 0.48 mg/dL (0.60-1.30); GLOMERULAR FILTR. RATE CALC > 60 mL/min (>60); GLUCOSE,RANDOM 104 mg/dL (70-110); SODIUM SERUM 139 mmol/L (136-145); TOTAL PROTEIN, SERUM 5.8 g/dL (6.4-8.2); UREA NITROGEN, BLOOD 6 mg/dL (7-18)
[2023-08-15 08:48] VITALS: PULSE 82; TEMP 98.8
[2023-08-15 16:23] VITALS: BP 141/107; PULSE 90; RESP 20; TEMP 98.1
[2023-08-15 20:47] VITALS: BP 142/69; PULSE 100; RESP 20; TEMP 97.4
[2023-08-15 23:26] LABS: GLUCOMETER DEV NAME(LOC) 6N.2B; GLUCOSE,POINT OF CARE 126 MG/DL (70-110)
[2023-08-15 23:26] LABS: GLUCOMETER DEV NAME(LOC) 6S.2; GLUCOSE,POINT OF CARE 95 MG/DL (70-110)
[2023-08-16 04:22] VITALS: BP 129/88; PULSE 93; RESP 20; TEMP 98.1
[2023-08-16 05:40] LABS: GLUCOMETER DEV NAME(LOC) 4E.2; GLUCOSE,POINT OF CARE 88 MG/DL (70-110)
[2023-08-16 08:16] LABS: ANION GAP 10 mmol/L (8-16); CALCIUM, TOTAL 8.1 mg/dL (8.8-10.5); CARBON DIOXIDE 22 mmol/L (22-29); CHLORIDE 107 mmol/L (98-107); CREATININE 0.53 mg/dL (0.60-1.30); GLOMERULAR FILTR. RATE CALC > 60 mL/min (>60); GLUCOSE,RANDOM 95 mg/dL (70-110); POTASSIUM 3.5 mmol/L (3.5-5.1); SODIUM SERUM 139 mmol/L (136-145); UREA NITROGEN, BLOOD 6 mg/dL (7-18)
[2023-08-16 08:54] VITALS: BP 147/71; PULSE 83; RESP 19; TEMP 97.7
[2023-08-16 11:30] LABS: GLUCOMETER DEV NAME(LOC) 4E.2; GLUCOSE,POINT OF CARE 92 MG/DL (70-110)
[2023-08-16 17:46] LABS: GLUCOMETER DEV NAME(LOC) 4E.2; GLUCOSE,POINT OF CARE 109 MG/DL (70-110)
[2023-08-16 18:44] VITALS: BP 139/67; PULSE 80; RESP 20; TEMP 97.9
[2023-08-16 20:35] VITALS: BP 128/65; PULSE 93; RESP 18; TEMP 98.2
[2023-08-17 04:35] VITALS: BP 138/79; PULSE 80; RESP 18; TEMP 97.8
[2023-08-17 07:05] LABS: GLUCOMETER DEV NAME(LOC) 6N.2B; GLUCOSE,POINT OF CARE 112 MG/DL (70-110)
[2023-08-17 08:02] LABS: BASOPHILS % (AUTO) 0.2 % (0.0-2.0); EOSINOPHILS % (AUTO) 0 % (1.0-6.0); HEMATOCRIT 35.4 % (36-46); HEMOGLOBIN 12.1 g/dL (12.0-16.0); LYMPHOCYTES # (AUTO) 1.7 K/uL (1.0-4.8); LYMPHOCYTES % (AUTO) 32.1 % (22.0-44.0); MEAN CORPUSCULAR HEMOGLOBIN 31.8 pg (26.0-34.0); MEAN CORPUSCULAR HGB CONC 34.1 G/dL (31.0-37.0); MEAN CORPUSCULAR VOLUME 93 fL (80-100); MONOCYTES # (AUTO) 0.6 K/uL (0.1-1.0); MONOCYTES % (AUTO) 10.5 % (2.0-9.0); NEUTROPHILS % (AUTO) 57.2 % (40.0-70.0); PLATELET COUNT (AUTO) 411 K/uL (150-450); WHITE BLOOD COUNT (AUTO) 5.3 K/uL (4.5-11.0)
[2023-08-17 08:49] LABS: ALANINE AMINOTRANSFERASE 29 U/L (12-78); ALBUMIN 2.2 g/dL (3.4-5.0); ALKALINE PHOSPHATASE 112 U/L (46-116); ANION GAP 11 mmol/L (8-16); ASPARTATE AMINOTRANSFERASE 29 U/L (15-37); BILIRUBIN,TOTAL 0.4 mg/dL (0.1-1.0); CALCIUM, TOTAL 8.6 mg/dL (8.8-10.5); CARBON DIOXIDE 22 mmol/L (22-29); CHLORIDE 105 mmol/L (98-107); CREATININE 0.52 mg/dL (0.60-1.30); GLOMERULAR FILTR. RATE CALC > 60 mL/min (>60); GLUCOSE,RANDOM 110 mg/dL (70-110); POTASSIUM 3.4 mmol/L (3.5-5.1); SODIUM SERUM 138 mmol/L (136-145); TOTAL PROTEIN, SERUM 6.2 g/dL (6.4-8.2); UREA NITROGEN, BLOOD 10 mg/dL (7-18)
[2023-08-17 09:04] VITALS: BP 136/75; PULSE 79; RESP 18; TEMP 96.9
[2023-08-17 14:41] LABS: GLUCOMETER DEV NAME(LOC) 6S.2; GLUCOSE,POINT OF CARE 105 MG/DL (70-110)
[2023-08-17] MEDS ORDERED: CASP50VI IV (16:01)
[2023-08-17] MEDS ORDERED: [UNRECOGNIZED DRUG - CODE] IV (16:07)
[2023-08-17] MEDS ORDERED: METO25 PO (16:10)
[2023-08-17] MEDS ORDERED: OLAN7.5T22 PO (16:11)
[2023-08-17] MEDS ORDERED: BISA10SU11 PR (16:13)
[2023-08-17 16:42] VITALS: BP 137/79; PULSE 98; RESP 18; TEMP 97.9
[2023-08-17 16:58] LABS: TROPONIN I-HIGH SENSITIVITY 4 ng/L (<51)
[2023-08-17 20:07] VITALS: BP 139/75; PULSE 93; RESP 18; TEMP 97.4
[2023-08-17] MEDS: LORazepam 2 MG/ML VIAL IVP ONE (21:00)
[2023-08-17] MEDS: DiphenhydrAMINE HCL 50 MG/ML VIAL IVP ONE (21:00)
== END 2023-08-17 21:29 | DRG 720 ==
LOC: EMS 15:03 → 5S 21:01 → 6N 07-21 00:10 → 5N 08-07 23:20 → 6S 08-11 00:29
PROVIDERS: ADMIT Internal Medicine; ATTEND Internal Medicine
PROC: 05HB33Z Insertion of Infusion Device into Right Basilic Vein, Percutaneous Approach (ICD-10-PCS; principal; 2023-07-26)
DX: A41.9 Sepsis, unspecified organism (principal); G92.9 Unspecified toxic encephalopathy; B49 Unspecified mycosis; E44.0 Moderate protein-calorie malnutrition; F20.2 Catatonic schizophrenia; N39.0 Urinary tract infection, site not specified; F31.9 Bipolar disorder, unspecified; E66.9 Obesity, unspecified; Z20.822 Contact with and (suspected) exposure to COVID-19; E03.9 Hypothyroidism, unspecified; F20.9 Schizophrenia, unspecified; I10 Essential (primary) hypertension; B95.7 Other staphylococcus as the cause of diseases classified elsewhere; B96.5 Pseudomonas (aeruginosa) (mallei) (pseudomallei) as the cause of diseases classified elsewhere; Z16.24 Resistance to multiple antibiotics; E87.6 Hypokalemia; F06.1 Catatonic disorder due to known physiological condition; F41.9 Anxiety disorder, unspecified; I51.7 Cardiomegaly; M54.50 Low back pain, unspecified; Z88.0 Allergy status to penicillin; Z88.2 Allergy status to sulfonamides; Z85.42 Personal history of malignant neoplasm of other parts of uterus; Z90.710 Acquired absence of both cervix and uterus; Z91.199 Patient's noncompliance with other medical treatment and regimen due to unspecified reason; Z68.32 Body mass index [BMI] 32.0-32.9, adult; S31.809A Unspecified open wound of unspecified buttock, initial encounter; B96.4 Proteus (mirabilis) (morganii) as the cause of diseases classified elsewhere; X58.XXXA Exposure to other specified factors, initial encounter; Y93.89 Activity, other specified; Y92.89 Other specified places as the place of occurrence of the external cause; Y99.8 Other external cause status
CPT/HCPCS: 36245; 36569; 70450; 71045; 74176; 76937; 80048; 80053; 80202; 81001; 82962; 83605; 83735; 83880; 84100; 84132; 84145; 84146; 84443; 84484; 85025; 85610; 87040; 87070; 87077; 87086; 87186; 87205; 87804; 92610; 93005; 97162; 97165; 99285; C9113; G0378; J0131; J0360; J0610; J0637; J0696; J1200; J1644; J2060; J2185; J2248; J2270; J3260; J3475; J3480; J3490; J7030; J7040; J7042; J7050; J7060; J7070; J7131; Q9967; 36415-L1; 36415-TC; X7700